=== PATIENT | female | born 1970 | race Caucasian/White ===

== ENCOUNTER 2020-05-25 13:17 | Inpatient (IN) | payer OTHER ==
[~2020-05-25] VITALS: Ht 160 cm; Wt 90.7 kg
[2020-05-25 13:37] VITALS: Ht 160 cm; Wt 90.7 kg
[2020-05-25 16:09] LABS: BASOPHIL % 0.7 % (0-2); PLATELET COUNT 334 x10^3mcL (130-400); RED CELL DISTRIBUTION WIDTH 14.1 % (11.5-14.5)
[2020-05-25 16:38] LABS: ALBUMIN 3.8 g/dL (3.4-5.0); BILIRUBIN TOTAL 0.21 mg/dL (0.20-1.00); CREATININE SERUM 1.1 mg/dL (0.6-1.0); POTASSIUM SERUM 4.3 mmol/L (3.5-5.1); TOTAL PROTEIN, SERUM 6.9 g/dL (6.4-8.2)
[2020-05-25 16:55] LABS: CALCIUM 8.5 mg/dL (8.5-10.1)
--- NOTE | 2020-05-25 18:36 | NUR ---
PT ARRIVED TO ED WITH COMPLAINTS OF RUQ ABD PAIN X 5 DAYS. PT STATES PAIN INCREASES WHEN EATING. PT STATES IS HAVING NAUSEA BUT IS NOT VOMITING. PT STATES HAS HAD ISSUES WITH CHRONIC CONSTIPATION BUT SINCE THE ABD PAIN, THE CONSTIPATION IS NOT BAD. PT IS AOX4 AND IS AMBULATORY WITHOUT ASSISTANCE. PT IS LAYING DOWN IN BED WITH HOB UP AND LOOKS TO BE IN NO ACUTE DISTRESS. [facility]IN[facility] TO [facility].
[2020-05-25 18:59] LABS: microscopic required? NO
[2020-05-25 19:11] LABS: MAGNESIUM 2.6 mg/dL (1.8-2.4); PHOSPHOROUS 4.2 mg/dL (2.5-4.9)
[2020-05-25 19:15] LABS: T3 TOTAL 0.88 ng/mL
[2020-05-25 19:16] LABS: FREE T4 0.97 ng/dL (0.76-1.46); FREE THYROXINE INDEX 1.8 ug/dL (1.4-4.5); T4(THYROXINE) 5.4 ug/dL (4.7-13.3)
--- NOTE | 2020-05-25 19:22 | NUR ---
ENDORSED TO NIGHT NURSE
--- NOTE | 2020-05-25 19:22 | NUR ---
RECEIVED REPORT FROM MARVEL HUDSON, I WILL ASSUME CARE OF PT AT THIS TIME.
[2020-05-25 19:23] LABS: CHOLESTEROL/HDL RATIO 5.5
[2020-05-25] MEDS ORDERED: ZOF4 PO (19:24)
[2020-05-25] MEDS ORDERED: UNITHROID PO (19:24)
[2020-05-25] MEDS ORDERED: OXAZEPAM15 MG PO (19:24)
[2020-05-25] MEDS ORDERED: CABERGOLINE0.5 MG PO (19:25)
[2020-05-25] MEDS ORDERED: MELOXICAM15 M1 PO (19:26)
[2020-05-25] MEDS ORDERED: REXULTI0.5 MG PO (19:26)
[2020-05-25] MEDS ORDERED: ESCITALOPRAM OX20 MG PO (19:26)
[2020-05-25 19:34] LABS: urine erythrocyte NEGATIVE (NEGATIVE)
--- NOTE | 2020-05-25 20:02 | NUR ---
PT SITTING IN BED AAOX4, NAD NOTED. PT RECEIVING FLUIDS AT THIS TIME.
--- NOTE | 2020-05-25 20:30 | NUR ---
TRIED CALLING REPORT TO [id number], RANG AND RANG. CALLED [phone] AND SARAI HUDSON STATED " CAN I HAVE THE NURSE CALL YOU BACK BECAUSE I HAVE TO FIND HER, SHE MIGHT BE WITH A PT" NADJA KILLIAN NOTIFIED, WILL TRY CALLING BACK.
[2020-05-25 20:49] LABS: AMPHETAMINE QUAL UR NONE DETECTED (See below)
--- NOTE | 2020-05-25 21:04 | NUR ---
GAVE REPORT TO AYAD HUDSON FOR FURTHER CARE OF PT. PT WILL BE TRANSFERRING UP SOON.
[2020-05-25 22:02] VITALS: BP 113/65
--- NOTE | 2020-05-25 22:40 | NUR ---
ADMITTED A PATIENT FROM ER [facility] C/O OF KALE ZAMBRANO,PT WAS RECIEVED FROM ER VIA BED AND MADE COMFORTABLE IN BED,ON INITAIL ASSESSMENT PATIENT IS AAO REG RESP NO SOB,ABDO IS SOFT WITH ACTIVE BOWEL SOUNDS WITH RT LOWER QUADRANT PAIN WHICH COMES ON WHEN SHE EAT,NO PAIN AT THIS TIME,PT HAD HL TO THE RT AC WITH THE SITE PATENT AND INTACT,BED IN THE LOW POSITION AND LOCKED,KEPT CLEAN AND DRY TO TOUCH AND WILL CONTINUE TO MONITOR.
--- NOTE | 2020-05-26 01:15 | NUR ---
DR SANDRA HERE MADE AWARE OF PATIENT AMMONIA IS 63,WILL CONTIUE TO MONITOR.
--- NOTE | 2020-05-26 02:07 | NUR ---
PT SLEEPING SOUNDLY AND WILL CONTINUE TO MONITOR.
[2020-05-26 04:52] VITALS: BP 116/74
--- NOTE | 2020-05-26 06:26 | NUR ---
PT HAD A RESTING NIGHT NO CHANGE AT THIS TIME AND WILL CONTINUE TO MONITOR.
--- NOTE | 2020-05-26 07:30 | NUR ---
BEDSIDE REPOTRT RECEIVED FROM BECCA SIM FOR CONTINUITY OF CARE. ALL QUESTIONS ANSWERED. WILL MONITOR PT AND FOLLOW PLAN OF CARE.
[2020-05-26 08:10] VITALS: BP 122/75
--- NOTE | 2020-05-26 08:30 | NUR ---
PT RESTING IN BED, EYES CLOSED, AROUSABLE TO VOICE. PT IS A&OX4, VSS, RR EVEN AND UNLABORED. PT IN NAD. DENIES PAIN AT THIS TIME. PT ABLE TO POSITION SELF TO COMFORT. WILL CONTINUE TO MONTOR PT AND FOLLOW PLAN OF CARE.
--- NOTE | 2020-05-26 09:59 | NUR ---
PT NOT GIVEN LIPITOR. WAS ADDED TO EMAR AND IMMEDIATELY DC'D.
--- NOTE | 2020-05-26 10:04 | NUR ---
SPOKE WITH LAB. BLLOD DRAW FOR 0700 WAS COMPLETED. LAB IS RECEIVING NOW.
[2020-05-26 10:17] LABS: BASOPHIL % 0.9 % (0-2); PLATELET COUNT 322 x10^3mcL (130-400)
[2020-05-26 12:09] LABS: BILIRUBIN DIRECT 0.04 mg/dL (0.0-0.2); BILIRUBIN TOTAL 0.2 mg/dL (0.20-1.00); CALCIUM 8.4 mg/dL (8.5-10.1); CREATININE SERUM 1.2 mg/dL (0.6-1.0); MAGNESIUM 2.4 mg/dL (1.8-2.4); PHOSPHOROUS 3.1 mg/dL (2.5-4.9); POTASSIUM SERUM 4.8 mmol/L (3.5-5.1)
[2020-05-26 12:17] LABS: ALBUMIN 3.1 g/dL (3.4-5.0); TOTAL PROTEIN, SERUM 6.1 g/dL (6.4-8.2)
--- NOTE | 2020-05-26 12:25 | NUR ---
PT REFUSED VITALS PER PODIATRIST. PT STATES SHE WAS TOLD SHE WAS GOING TO BE DISCHARGED. SPOKE WITH DR MERINO, AWAITING D/C PAPERWORK.
--- NOTE | 2020-05-26 13:17 | NUR ---
PT UPSET. WANTS TO LEAVE. CAME TO NURSES STATION ASKING FOR IV TO BE REMOVED OR SHE WILL TAKE IT OUT HERSELF. CN AWARE. CALLING DR FOR ORDERS.
[2020-05-26] MEDS ORDERED: AMITIZA24 MC1 PO (13:35)
[2020-05-26] MEDS ORDERED: ELA10 PO (13:36)
--- NOTE | 2020-05-26 13:38 | NUR ---
WENT TO PTS ROOM TO INFORM PT HER DISCHARGE PAPERWORK WAS STARTED BY THE PHYSICIAN. PT WAS NOT IN ROOM. NOT IN RESTROOM. IV WAS REMOVED BY ANOTHER RN. CN MADE AWARE.
== END 2020-05-26 13:45 | disposition left against medical advice (07) | DRG 445 ==
LOC: ED 13:17 → DU 17:43 → MU 17:43 → DU 21:28 → MU 05-26 10:46
PROVIDERS: Emergency Medicine; ADMIT Internal Medicine; ATTEND Internal Medicine
DX: K81.0 Acute cholecystitis (principal); B17.9 Acute viral hepatitis, unspecified; K58.9 Irritable bowel syndrome, unspecified; E78.5 Hyperlipidemia, unspecified; E03.9 Hypothyroidism, unspecified; Z53.29 Procedure and treatment not carried out because of patient's decision for other reasons; R74.0 Nonspecific elevation of levels of transaminase and lactic acid dehydrogenase [LDH]; F32.9 Major depressive disorder, single episode, unspecified; Z79.899 Other long term (current) drug therapy; Z90.49 Acquired absence of other specified parts of digestive tract; Z90.710 Acquired absence of both cervix and uterus
CPT/HCPCS: 83880; 84439; G0378; J2405; J3010; J3490; J7030